=== PATIENT | female | born 1980 | race Caucasian/White ===

== ENCOUNTER 2017-07-24 09:38 | Emergency (ER) | payer BC, SELFPAY ==
[2017-07-24 10:08] LABS: #Basophils 0.1 thou/uL (0.0-0.2); #Eosinphils 0.1 thou/uL (0.0-0.7); #Lymphocytes 1.4 thou/uL (1.20-3.40); #Monocytes 0.3 thou/uL (0.11-0.59); #Neutrophils 3.5 thou/uL (1.40-6.50); %Eosinophils 1.9 % (0.0-10.0); %Lymphocytes 25.3 % (21.0-51.0); %Monocytes 6.2 % (0.0-10.0); %Neutrophils 65.6 % (42.0-75.0); Hemoglobin 14.5 g/dL (12.0-16.0); Mean Corpuscular HGB CONC 32.6 g/dL (32.0-36.0); Mean Corpuscular Hemoglobin 31.2 pg (27.0-31.0); Mean Corpuscular Volume 95.6 fl (81.0-99.0); Mean Platelet Volume 6.7 fL (7.4-10.4); Platelet Count 265 thou/uL (130-400); RBC Distribution Width 10.9 % (11.5-14.5); Red Blood Cell (RBC) Count 4.65 mill/uL (4.20-5.40); White Blood Cell (WBC) Count 5.4 thou/uL (4.8-10.8)
[2017-07-24 10:28] LABS: ALT (SGPT) 19 U/L (8-55); AST (SGOT) 19 U/L (5-34); Albumin 5.1 g/dL (3.5-5.0); Alkaline Phosphatase 57 U/L (40-150); Anion Gap 9 mmol/L (10-20); BUN (Urea Nitrogen) 18 mg/dL (7.0-18.7); Bilirubin, Total 0.5 mg/dL (0.2-1.2); Calc. Creatinine Clearance 0 mL/min (70-130); Calcium 10.5 mg/dL (7.8-10.44); Carbon Dioxide 28 mmol/L (22-29); Chloride 103 mmol/L (98-107); Estimated GFR-MDRD 57; Globulin 3.2 g/dL (2.4-3.5); Glucose 94 mg/dL (70-105); Potassium 4.2 mmol/L (3.5-5.1); Protein, Total 8.3 g/dL (6.0-8.3); Sodium 136 mmol/L (136-145)
[2017-07-24 10:32] LABS: CKMB 0.3 ng/mL (0-6.6); Troponin I Less than 0.010 ng/mL (< 0.028)
--- NOTE | 2017-07-24 10:47 | RAD ---
AP VIEW CHEST: HISTORY: Cardiac palpitations FINDINGS: AP chest was obtained on 07/24/17. AP view chest demonstrates the lungs to be well aerated. No evidence of active intrathoracic disease is seen. No evidence of effusions, pneumonia, or pneumothorax seen. IMPRESSION: Unremarkable AP view chest. POS: [facility]
--- NOTE | 2017-07-24 12:21 | RAD ---
CERVICAL SPINE 5 VIEWS: Date: 07/24/17 HISTORY: Neck pain. FINDINGS: At the C6-7 level, disc replacement is apparent. There is widening of the anterior spinous distance a t this postoperative level. It does not change upon flexion or extension. No abnormal translational m otion. Cervicothoracic junction is intact. Scattered osteophytosis is present throughout the cervical spine. IMPRESSION: Degenerative and postoperative changes of the cervical spine. No acute osseous abnormalities are demo nstrated. POS: [facility]
== END 2017-07-24 12:27 | disposition home or self-care (01) ==
LOC: ERS 09:38
DX: M54.2 Cervicalgia (principal); R00.2 Palpitations; G62.9 Polyneuropathy, unspecified; F31.9 Bipolar disorder, unspecified; Z79.899 Other long term (current) drug therapy
CPT/HCPCS: 71045; 72052; 80053; 82553; 84484; 85025; 93005; 96361; 96374; J2270

== ENCOUNTER 2018-01-12 12:38 | Outpatient (CLI) | payer BC ==
--- NOTE | 2018-01-12 15:45 | RAD ---
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 FINDINGS: There is a disc space prosthesis of C5-6 with partial osseous fusion of the C5-6 vertebra, involving the anterior column. There is straightening of the normal cervical curvature. There is multilevel mil d to moderate degenerative change. No significant subluxation. Prevertebral soft tissues are of kelsey l caliber. Evaluation of flexion and extension positioning reveals no significant translational motion. Evaluati on of the cervical spine is limited without the presence of frontal projection or odontoid views. IMPRESSION: Post-operative cervical spine, without evidence of significant subluxation or translation of motion. POS: [facility]
== END 2018-01-12 12:39 | disposition home or self-care (01) ==
LOC: RAD 12:38
PROVIDERS: ATTEND Specialist
DX: M50.122 Cervical disc disorder at C5-C6 level with radiculopathy (principal); Z98.890 Other specified postprocedural states
CPT/HCPCS: 72040

== ENCOUNTER 2018-03-25 12:47 | Outpatient (CLI) | payer BC ==
--- NOTE | 2018-03-25 14:11 | RAD ---
CERVICAL SPINE THREE VIEWS: History: Neck pain. Comparison: 01-12-18 FINDINGS: Post op changes are again noted with interbody disc implants seen at C5-6. Degenerative changes and l oss of disc space at C4-5. Anterior spurring at C4, C5, C6 and C7. No interval change from 01-12-18. No change in alignment with flexion and extension. IMPRESSION: Post-operative and degenerative changes of the cervical spine appear stable. POS: [facility]
--- NOTE | 2018-03-25 16:15 | MRI ---
CERVICAL SPINE MRI WITHOUT CONTRAST: Date: 03/25/18 HISTORY: Spondylolisthesis. Foraminal stenosis. Neck pain, radiation down the right side. COMPARISON: 07/24/17. CORRELATION: Cervical spine radiograph series dated 03/25/18. FINDINGS: There is extensive metallic susceptibility artifact secondary to a disc prosthesis at the C5-C6 level . The degree of metallic susceptibility artifact is similar to the previous examination. With the exc eption of the arrangement of metallic susceptibility artifact, there is appropriate T1 marrow signal intensity of the cervical vertebra. No evidence of fracture. No significant STIR hyperintensity to garcia ggest vertebral body edema or ligamentous injury. Visualized brain parenchyma, cervicomedullary junction, upper cervical cord, and the upper thoracic c ord have a normal size and signal intensity. Marked limited evaluation of the cervical cord at the le marlene of fusion. C2-C3: There is a small right paracentral disc osteophyte complex which indents and deforms the righ t hemicord. Mild central canal stenosis. Foramina are patent. C3-C4: There is a broad based disc osteophyte complex with a central component. There is deformity o f the ventral thecal sac and ventral cord. Moderate central canal stenosis. No signal abnormality in the cord. Neural foramina are patent bilaterally. C4: Limited evaluation due to metallic susceptibility artifact. Grossly, no evidence of high grade c entral canal stenosis or high grade foraminal narrowing. C5-C6: Markedly limited evaluation due to metallic susceptibility artifact. C6-C7: No significant central canal stenosis or foraminal narrowing. C7-T1: No significant central canal stenosis or foraminal narrowing. IMPRESSION: 1. Degenerative changes of the upper cervical spine as described above. The degree of central canal stenosis at C3-C4 has not significantly changed. 2. Limited evaluation of the cervical spine at the level of fusion due to metallic susceptibility ar tifact. POS: [facility]
== END 2018-03-25 12:48 | disposition home or self-care (01) ==
LOC: TBSIIMAG 12:47
DX: M99.81 Other biomechanical lesions of cervical region (principal); M43.12 Spondylolisthesis, cervical region; M47.892 Other spondylosis, cervical region; M48.02 Spinal stenosis, cervical region; Z98.890 Other specified postprocedural states
CPT/HCPCS: 72040; 72141

== ENCOUNTER 2018-05-01 04:03 | Emergency (ER) | payer BC ==
[2018-05-01 04:22] LABS: #Eosinphils 0.2 thou/uL (0.0-0.7); #Lymphocytes 0.9 thou/uL (1.20-3.40); #Monocytes 0.4 thou/uL (0.11-0.59); #Neutrophils 10.3 thou/uL (1.40-6.50); %Basophils 0.3 % (0.0-1.0); %Eosinophils 2.1 % (0.0-10.0); %Lymphocytes 7.6 % (21.0-51.0); %Monocytes 3.7 % (0.0-10.0); %Neutrophils 86.3 % (42.0-75.0); Hemoglobin 13.1 g/dL (12.0-16.0); Mean Corpuscular HGB CONC 33.6 g/dL (32.0-36.0); Mean Corpuscular Hemoglobin 29.8 pg (27.0-31.0); Mean Corpuscular Volume 88.7 fL (78.0-98.0); Mean Platelet Volume 6.7 fL (7.4-10.4); Platelet Count 226 thou/uL (130-400); RBC Distribution Width 10.8 % (11.5-14.5); White Blood Cell (WBC) Count 11.9 thou/uL (4.8-10.8)
[2018-05-01] MEDS ORDERED: Metoclopramide HCl 10 MG/2 ML VIAL ONE (04:22)
[2018-05-01 04:38] LABS: ALT (SGPT) 88 U/L (8-55); AST (SGOT) 98 U/L (5-34); Albumin 4.4 g/dL (3.5-5.0); Alkaline Phosphatase 65 U/L (40-150); Anion Gap 14 mmol/L (10-20); BUN (Urea Nitrogen) 16 mg/dL (7.0-18.7); Bilirubin, Total 0.8 mg/dL (0.2-1.2); Calc. Creatinine Clearance 0 mL/min (70-130); Calcium 10.3 mg/dL (7.8-10.44); Carbon Dioxide 21 mmol/L (22-29); Chloride 109 mmol/L (98-107); Estimated GFR-MDRD 70; Globulin 3.1 g/dL (2.4-3.5); Glucose 134 mg/dL (70-105); Lipase 10 U/L (8-78); Potassium 3.4 mmol/L (3.5-5.1); Protein, Total 7.5 g/dL (6.0-8.3); Sodium 141 mmol/L (136-145)
[2018-05-01] MEDS ORDERED: Fleet Enema 133 ML BOT ONE (05:03)
[2018-05-01 06:48] LABS: Bilirubin Negative (Negative); Blood, Urine Negative (Negative); Clarity Clear (Clear); Glucose, Urine (Dipstick) Negative (Negative); Leukocyte Negative (Negative); Nitrite Negative (Negative); Protein, Urine (Dipstick) Negative (Neg-Trace); Urobilinogen 0.2 mg/dL (0.2-1.0)
--- NOTE | 2018-05-01 08:35 | CT ---
CONTRAST ENHANCED ABDOMEN AND PELVIC CT: INDICATION: Pain. FINDINGS: There is moderate distention of the gallbladder. Punctate hypoattenuation of the liver is too small to further characterize. There is no pancreatic or splenic pathology. Adrenal glands and kidneys re veal no acute findings. T here is a small probable cyst of the right kidney, although too small to de finitively characterize. Contrast-opacified bowel reveals no abnormal dilatation. There is fluid co ntent of the colon which can be seen in the setting of colitis. Correlate clinically. There is no f ree air or portal vein gas. The visualized lung bases reveal minimal subpleural volume loss. There is no acute osseous pathology. IMPRESSION: 1. Fluid content of the colon which can be seen in the setting of colitis. Correlate clinically. 2. Moderate distension of the gallbladder. As necessary, this may be further assessed with gallblad gina ultrasound if clinically warranted. 3. Additional details as described above. POS: [facility]
[2018-05-01] MEDS ORDERED: Iopamidol 370 76% 100 ML VIAL ONE (14:08)
== END 2018-05-01 06:56 | disposition home or self-care (01) ==
LOC: SCSER 04:03
DX: K59.00 Constipation, unspecified (principal); F41.9 Anxiety disorder, unspecified; F31.9 Bipolar disorder, unspecified; Z79.899 Other long term (current) drug therapy
CPT/HCPCS: 74177; 80053; 81003; 83690; 85025; 96365; J2765

== ENCOUNTER 2018-12-22 13:03 | Outpatient (CLI) | payer BC ==
--- NOTE | 2018-12-22 13:50 | RAD ---
CERVICAL SPINE 5 VIEWS: HISTORY: Spondylolisthesis cervical region. COMPARISON: 11/23/2014. FINDINGS: Interbody disk implants are noted at C3-C4 and C5-C6. Otherwise, there is some generalized spondylos is, particularly at C6-C7. No evidence for malalignment or abnormal translation between flexion and extension. Odontoid and C1 regions are somewhat obscured on the AP open mouth view. No prevertebral soft tissue swelling. IMPRESSION: Interbody postop disk changes at C3-C4 and C5-C6. Mild spondylosis. No abnormal translation between flexion and extension. POS: [facility]
== END 2018-12-22 13:04 | disposition home or self-care (01) ==
LOC: RAD 13:03
PROVIDERS: ATTEND Specialist
DX: M43.12 Spondylolisthesis, cervical region (principal); M47.812 Spondylosis without myelopathy or radiculopathy, cervical region; Z98.890 Other specified postprocedural states
CPT/HCPCS: 72050

== ENCOUNTER 2021-04-11 20:19 | Inpatient (IN) | payer BC ==
[2021-04-11 21:15] LABS: ALT (SGPT) 16 U/L (8-55); AST (SGOT) 13 U/L (5-34); Albumin 4.4 g/dL (3.5-5.0); Alkaline Phosphatase 70 U/L (40-110); Anion Gap 14 mmol/L (10-20); BUN (Urea Nitrogen) 15 mg/dL (7.0-18.7); Bilirubin, Total 0.2 mg/dL (0.2-1.2); Calc. Creatinine Clearance 0 mL/min (70-130); Calcium 9.4 mg/dL (7.8-10.44); Carbon Dioxide 22 mmol/L (22-29); Chloride 108 mmol/L (98-107); Globulin 2.8 g/dL (2.4-3.5); Glucose 106 mg/dL (70-105); Potassium 4.4 mmol/L (3.5-5.1); Protein, Total 7.2 g/dL (6.0-8.3); Sodium 140 mmol/L (136-145)
[2021-04-11 21:19] LABS: #Basophils 0.1 thou/uL (0.0-0.2); #Eosinphils 0.4 thou/uL (0.0-0.7); #Lymphocytes 2.5 thou/uL (1.20-3.40); #Monocytes 0.8 thou/uL (0.11-0.59); #Neutrophils 4.3 thou/uL (1.40-6.50); %Basophils 1.5 % (0.0-1.0); %Eosinophils 4.8 % (0.0-10.0); %Lymphocytes 30.5 % (21.0-51.0); %Monocytes 9.5 % (0.0-10.0); %Neutrophils 53.7 % (42.0-75.0); Hemoglobin 14.1 g/dL (12.0-16.0); Mean Corpuscular Hemoglobin 31.3 pg (27.0-31.0); Mean Corpuscular Volume 92.1 fL (78.0-98.0); Mean Platelet Volume 6.8 fL (7.4-10.4); Platelet Count 316 thou/uL (130-400); RBC Distribution Width 11.3 % (11.5-14.5); Red Blood Cell (RBC) Count 4.49 mill/uL (4.20-5.40)
[2021-04-11] MEDS ORDERED: Dexamethasone 10 MG/ML VIAL ONE (22:16)
[2021-04-11] MEDS ORDERED: Ondansetron ODT 4 MG TAB PO PRN (22:39)
[2021-04-11] MEDS ORDERED: Acetaminophen 325 MG TAB PO PRN (22:39)
[2021-04-11] MEDS ORDERED: Ondansetron PF 4 MG/2 ML Vial IVP PRN (22:39)
[2021-04-11] MEDS ORDERED: clonazePAM 0.5 MG TAB PO SCH (23:30)
[2021-04-11] MEDS ORDERED: Pregabalin 75 MG CAP PO SCH (23:30)
[2021-04-12 03:02] VITALS: BMI 26.1
[2021-04-12] MEDS ORDERED: Enoxaparin Sodium 40 MG/0.4 ML SYRINGE SC SCH (09:00)
[2021-04-12] MEDS: Multivitamin W/ Minerals 1 TAB PO SCH (09:07)
[2021-04-12] MEDS: Cyclobenzaprine 10 MG TAB PO SCH ×2 (09:07→21:24)
[2021-04-12] MEDS: Cholecalciferol 1,000 UNITS (25 MCG) TAB PO SCH ×2 (09:07→21:24)
[2021-04-12] MEDS: Loratadine 10 MG TAB PO SCH (09:07)
[2021-04-12] MEDS ORDERED: Magnevist 469MG/ML 20 ML VIAL ONE ×2 (09:57)
[2021-04-12] MEDS ORDERED: Dexamethasone 4 mg/ml Vial SLOW IVP SCH (10:00)
[2021-04-12 12:13] LABS: SARS-CoV-2 PCR by NAA Not Detected (NotDetected)
[2021-04-12] MEDS ORDERED: Pregabalin 75 MG CAP PO SCH (14:15)
[2021-04-12] MEDS ORDERED: Pregabalin 75 MG CAP PO PRN (17:29)
[2021-04-12] MEDS: clonazePAM 0.5 MG TAB PO SCH (21:24)
[2021-04-13] MEDS: Cyclobenzaprine 10 MG TAB PO SCH ×2 (08:18→21:18)
[2021-04-13] MEDS: Multivitamin W/ Minerals 1 TAB PO SCH (08:19)
[2021-04-13] MEDS: Loratadine 10 MG TAB PO SCH (08:19)
[2021-04-13] MEDS: Cholecalciferol 1,000 UNITS (25 MCG) TAB PO SCH ×2 (08:19→21:19)
[2021-04-13] MEDS: Enoxaparin Sodium 40 MG/0.4 ML SYRINGE SC SCH (09:25)
[2021-04-13] MEDS ORDERED: Polyethylene Glycol 3350 17 GM Packet PO PRN (20:25)
[2021-04-13] MEDS: clonazePAM 0.5 MG TAB PO SCH (21:19)
[2021-04-14] MEDS: Cyclobenzaprine 10 MG TAB PO SCH (08:42)
[2021-04-14] MEDS: Cholecalciferol 1,000 UNITS (25 MCG) TAB PO SCH (08:42)
[2021-04-14] MEDS: Multivitamin W/ Minerals 1 TAB PO SCH (08:42)
[2021-04-14] MEDS: Loratadine 10 MG TAB PO SCH (08:42)
[2021-04-14] MEDS: Enoxaparin Sodium 40 MG/0.4 ML SYRINGE SC SCH (08:42)
[2021-04-14] MEDS ORDERED: Dexamethasone 4 MG TAB PO SCH (10:00)
[2021-04-14 12:31] VITALS: BP 130/83; TEMP 97.9
[2021-04-15] MEDS ORDERED: Dexamethasone 4 MG TAB PO SCH (08:00)
== END 2021-04-14 13:30 | disposition home or self-care (01) | DRG 556 ==
LOC: ERS 20:19 → 2NO 22:38 → OBSVTOIN 04-13 13:01
PROVIDERS: ADMIT Family Medicine; ATTEND Family Medicine
DX: R29.898 Other symptoms and signs involving the musculoskeletal system (principal); Z20.822 Contact with and (suspected) exposure to COVID-19; R27.0 Ataxia, unspecified; M48.02 Spinal stenosis, cervical region; M50.30 Other cervical disc degeneration, unspecified cervical region; G89.29 Other chronic pain; K21.9 Gastro-esophageal reflux disease without esophagitis; H50.9 Unspecified strabismus; F43.10 Post-traumatic stress disorder, unspecified; F41.9 Anxiety disorder, unspecified; F32.A Depression, unspecified
CPT/HCPCS: 70553; 72125; 72128; 72131; 72146; 72148; 72156; 80053; 85025; 93005; 96374; 96376; A9579; G0378; J1100; J1650; J8540; U0003; U0005

== ENCOUNTER 2021-06-06 12:37 | Outpatient (CLI) | payer BC | END 2021-06-06 12:38 | disposition home or self-care (01) | LOC: BICULT 12:37 | PROVIDERS: ATTEND Family Medicine | DX: E07.89 Other specified disorders of thyroid (principal); E04.2 Nontoxic multinodular goiter | CPT/HCPCS: 76536 ==